=== PATIENT | female | born 1980 | race African-American/Black ===

== ENCOUNTER 2018-09-08 07:27 | Inpatient (IN) ==
[2018-09-08] MEDS ORDERED: SODIUM CHLORIDE 0.9% 500 ML IV STA (07:55)
[2018-09-08 09:11] LABS: Apearance,Urine CLOUDY (Clear); Bilirubin,Urine Negative (Negative); Blood, Urine Negative (Negative); Glucose,Urine (UA) Negative (Negative); Ketones,Urine Negative (Negative); Mucus,Urine Occasional /LPF (Occasional); Nitrite,Urine Negative (Negative); Protein,Urine 100 MG/DL; RBC,Urine <1 /HPF (0-4); Squamous Epithelial Cell,Urine Occasional /HPF (0-10); Urine Color Amber (Yellow); Urine Specific Gravity 1.013 (1.001-1.035); Urine Urobilinogen < 2.0 EU/DL (0.2-1.0); WBC,Urine 5 /HPF (0-6)
[2018-09-08 09:48] LABS: Alanine Aminotransferase 29 U/L (13-56); Albumin 0.8 G/DL (3.4-5.0); Alkaline Phosphatase 123 U/L (45-117); Aspartate Amino Transferase 17 U/L (0-37); Bilirubin,Total < 0.39 MG/DL (0.2-1.0); Blood Urea Nitrogen 66 MG/DL (7-18); Calcium 7.8 MG/DL (8.5-10.1); Glucose 157 MG/DL (74-106); Osmolality,Calculated 315.3 MOS/KG (273-304); Potassium 3.1 MMOL/L (3.5-5.1); Sodium 148 MMOL/L (136-145)
[2018-09-08 09:49] LABS: Total Protein 5.6 G/DL (6.4-8.3)
[2018-09-08 09:58] LABS: Basophils % 0.1 % (0.0-0.8); Immature Granulocytes % 0.7 %; Immature Granulocytes Absolute 0.12 #; Lymphocytes # 1.4 10*3/uL (1.4-4.0); Lymphocytes % 8.4 % (21.3-54.2); Mean Corpuscular HGB Conc 29.3 GM/DL (32-36); Mean Corpuscular Hemoglobin 23 PG (27-34); Mean Corpuscular Volume 78.7 FL (87-102); Monocytes # 0.6 10*3/uL (0.11-0.8); Monocytes % 3.3 % (1.7-12.7); Neutrophils # 15.1 10*3/uL (1.4-7.4); Neutrophils % 87.5 % (38.7-73.9); Platelet Count 551 T/CUMM (130-400); Red Blood Count 1.69 MC/CUMM (3.8-5.5); White Blood Count 17.2 T/CUMM (4-12)
[2018-09-08 10:06] LABS: Hematocrit 13.3 VOL% (35.7-47.0); Hemoglobin 3.9 GM/DL (12.0-16.0)
[2018-09-08 10:15] LABS: Hypochromasia 1+; Lymphocytes 5 % (20-55); Platelet Estimate Adequate; Segmented Neutrophils 92 % (50-85); Total Cells Counted 100
[2018-09-08 10:16] LABS: Microcytosis Slight; Ovalocytes Slight
[2018-09-08] MEDS ORDERED: SODIUM CHLORIDE 0.9% 1,000 ML IV PRN (10:18)
[2018-09-08 11:08] LABS: Sedimentation Rate-Westergren 157 MM/HR (0-20)
[2018-09-08 11:08] LABS: % Iron Saturation 16.1 % (18-50); Ferritin 465.6 ng/ml (8-252)
[2018-09-08 11:09] LABS: Thyroid Stimulating Hormone 2.39 uIU/ml (0.358-3.74)
[2018-09-08 11:17] LABS: Folate 9.5 NG/ML (5.4-24.0)
[2018-09-08] MEDS ORDERED: SODIUM CHLORIDE 0.9% 500 ML IV ONE ×2 (11:43→13:30)
[2018-09-08] MEDS: DEXT 5% NACL 0.45% KCL 20 MEQ 20 MEQ/1,000 ML BAG IV SCH (12:31)
[2018-09-08] MEDS ORDERED: SODIUM BICARBONATE 650 MG TABLET PO SCH (13:00)
[2018-09-08] MEDS: PANTOPRAZOLE 40 MG VIAL IV SCH (13:13)
[2018-09-08] MEDS: CEFTAROLINE 200 MG in SODIUM CHLORIDE 0.9% 100 ML IV SCH (13:35)
[2018-09-08 15:23] LABS: Apearance,Urine Slightly Hazy (Clear); Bilirubin,Urine Negative (Negative); Blood, Urine Negative (Negative); Glucose,Urine (UA) Negative (Negative); Ketones,Urine Negative (Negative); Nitrite,Urine Negative (Negative); Protein,Urine 30 MG/DL; RBC,Urine 1 /HPF (0-4); Urine Specific Gravity 1.013 (1.001-1.035); Urine Urobilinogen < 2.0 EU/DL (0.2-1.0); WBC,Urine 8 /HPF (0-6)
[2018-09-08 15:24] LABS: Urine Color Dark yellow (Yellow)
[2018-09-08] MEDS ORDERED: PNEUMOCOCCAL VACCINE (13 VALENT) 0.5 ML SYRINGE IM ONE (15:59)
[2018-09-08] MEDS ORDERED: ACETAMINOPHEN 650 MG SUPP RECTAL ONE (16:50)
[2018-09-08] MEDS: LACOSAMIDE 50 MG TABLET PO SCH (22:50)
[2018-09-08] MEDS: MIRTAZAPINE 15 MG TABLET PO SCH (22:50)
[2018-09-09] MEDS: DEXT 5% NACL 0.45% KCL 20 MEQ 20 MEQ/1,000 ML BAG IV SCH ×3 (00:25→14:32)
[2018-09-09] MEDS: CEFTAROLINE 200 MG in SODIUM CHLORIDE 0.9% 100 ML IV SCH ×2 (03:45→14:32)
[2018-09-09 04:44] LABS: Alanine Aminotransferase 30 U/L (13-56); Albumin 0.8 G/DL (3.4-5.0); Alkaline Phosphatase 138 U/L (45-117); Aspartate Amino Transferase 21 U/L (0-37); Basophils # 0.1 10*3/uL (0.0-0.2); Basophils % 0.4 % (0.0-0.8); Bilirubin,Total < 0.39 MG/DL (0.2-1.0); Blood Urea Nitrogen 52 MG/DL (7-18); Calcium 7.7 MG/DL (8.5-10.1); Glucose 149 MG/DL (74-106); Hematocrit 31.8 VOL% (35.7-47.0); Immature Granulocytes % 0.9 %; Lymphocytes # 0.8 10*3/uL (1.4-4.0); Lymphocytes % 3.8 % (21.3-54.2); Mean Corpuscular HGB Conc 31.4 GM/DL (32-36); Mean Corpuscular Hemoglobin 26 PG (27-34); Mean Platelet Volume 9.5 FL (9.6-12.0); Monocytes # 0.5 10*3/uL (0.11-0.8); Monocytes % 2.3 % (1.7-12.7); Neutrophils # 20.8 10*3/uL (1.4-7.4); Neutrophils % 92.6 % (38.7-73.9); Osmolality,Calculated 312.1 MOS/KG (273-304); Platelet Count 454 T/CUMM (130-400); Potassium 3.5 MMOL/L (3.5-5.1); Red Cell Distribution Width 18.3 % (9.3-17.3); Sodium 149 MMOL/L (136-145); Total Protein 5.5 G/DL (6.4-8.3)
[2018-09-09 04:53] LABS: Red Blood Count 3.83 MC/CUMM (3.8-5.5); White Blood Count 22.4 T/CUMM (4-12)
[2018-09-09 05:07] LABS: Band Neutrophils 6 % (0-10); Lymphocytes 5 % (20-55); Segmented Neutrophils 87 % (50-85); Total Cells Counted 100
[2018-09-09 05:08] LABS: Platelet Estimate Increased; Polychromasia 1+
[2018-09-09] MEDS ORDERED: GLUCAGON 1 MG VIAL IM PRN (07:55)
[2018-09-09] MEDS ORDERED: ACETAMINOPHEN 325 MG TABLET PO PRN (07:55)
[2018-09-09] MEDS: PANTOPRAZOLE 40 MG VIAL IV SCH (08:47)
[2018-09-09] MEDS: POTASSIUM CHLORIDE RIDER 10 MEQ in PREMIX 1 EACH IV PRN ×3 (08:47→11:18)
[2018-09-09] MEDS: MULTIVITAMIN (CENTRUM) TABLET PO SCH (11:46)
[2018-09-09] MEDS: LACOSAMIDE 50 MG TABLET PO SCH ×2 (11:46→20:09)
[2018-09-09] MEDS: ATORVASTATIN 40 MG TABLET PO SCH (11:46)
[2018-09-09] MEDS: ZINC OXIDE PASTE 113 GM TUBE TOP SCH ×2 (14:32→20:09)
[2018-09-09] MEDS: MIRTAZAPINE 15 MG TABLET PO SCH (20:09)
[2018-09-10] MEDS: CEFTAROLINE 200 MG in SODIUM CHLORIDE 0.9% 100 ML IV SCH ×2 (01:41→14:38)
[2018-09-10] MEDS: DEXT 5% NACL 0.45% KCL 20 MEQ 20 MEQ/1,000 ML BAG IV SCH ×3 (01:42→15:35)
[2018-09-10 03:50] LABS: Basophils # 0.1 10*3/uL (0.0-0.2); Basophils % 0.3 % (0.0-0.8); Hematocrit 33.3 VOL% (35.7-47.0); Hemoglobin 10.6 GM/DL (12.0-16.0); Immature Granulocytes % 0.8 %; Immature Granulocytes Absolute 0.17 #; Lymphocytes # 1.2 10*3/uL (1.4-4.0); Lymphocytes % 5.4 % (21.3-54.2); Mean Corpuscular HGB Conc 31.8 GM/DL (32-36); Mean Corpuscular Hemoglobin 26 PG (27-34); Mean Platelet Volume 9.4 FL (9.6-12.0); Monocytes # 0.7 10*3/uL (0.11-0.8); Monocytes % 3.1 % (1.7-12.7); Neutrophils # 19.3 10*3/uL (1.4-7.4); Neutrophils % 90.4 % (38.7-73.9); Platelet Count 446 T/CUMM (130-400); Red Blood Count 4.01 MC/CUMM (3.8-5.5); Red Cell Distribution Width 18.6 % (9.3-17.3); White Blood Count 21.3 T/CUMM (4-12)
[2018-09-10 03:58] LABS: Calcium 7.8 MG/DL (8.5-10.1); Osmolality,Calculated 301.3 MOS/KG (273-304); Potassium 3.9 MMOL/L (3.5-5.1)
[2018-09-10 04:27] LABS: Band Neutrophils 3 % (0-10); Burr Cells Slight; Hypochromasia 1+; Lymphocytes 6 % (20-55); Ovalocytes Slight; Platelet Estimate Adequate; Segmented Neutrophils 89 % (50-85); Total Cells Counted 100
[2018-09-10] MEDS ORDERED: GLUCAGON 1 MG VIAL IM PRN (04:29)
[2018-09-10] MEDS: DEXTROSE 50% 25 GM/50 ML SYRINGE IV PRN (04:44)
[2018-09-10] MEDS ORDERED: MAGNESIUM SULF RIDER 4 GM in PREMIX 1 EACH IV ONE (06:45)
[2018-09-10] MEDS: ZINC OXIDE PASTE 113 GM TUBE TOP SCH ×2 (07:00→21:18)
[2018-09-10] MEDS: POTASSIUM CHLORIDE RIDER 10 MEQ in PREMIX 1 EACH IV PRN ×2 (07:51→08:38)
[2018-09-10] MEDS: PANTOPRAZOLE 40 MG VIAL IV SCH (08:04)
[2018-09-10] MEDS: MULTIVITAMIN (CENTRUM) TABLET PO SCH ×2 (08:37→14:39)
[2018-09-10] MEDS: LACOSAMIDE 50 MG TABLET PO SCH ×3 (08:37→21:19)
[2018-09-10] MEDS: ATORVASTATIN 40 MG TABLET PO SCH ×2 (08:37→14:38)
[2018-09-10] MEDS ORDERED: LIDOCAINE 1%/EPI INJ 20 ML VIAL ONE (10:47)
[2018-09-10] MEDS ORDERED: MICROFIBRILLAR COLLAGEN POWDER 1 GM CAN TOP ONE (11:55)
[2018-09-10] MEDS ORDERED: MIDAZOLAM 2 MG/2 ML VIAL ONE (12:24)
[2018-09-10] MEDS ORDERED: PROPOFOL 200 MG/20 ML VIAL IV ONE (12:24)
[2018-09-10] MEDS ORDERED: fentaNYL 100 MCG/2 ML VIAL ONE (12:24)
[2018-09-10] MEDS: MIRTAZAPINE 15 MG TABLET PO SCH (21:19)
[2018-09-11] MEDS: DEXT 5% NACL 0.45% KCL 20 MEQ 20 MEQ/1,000 ML BAG IV SCH (02:53)
[2018-09-11] MEDS: CEFTAROLINE 200 MG in SODIUM CHLORIDE 0.9% 100 ML IV SCH (02:55)
[2018-09-11 05:36] LABS: Basophils # 0.1 10*3/uL (0.0-0.2); Basophils % 0.2 % (0.0-0.8); Hematocrit 32.2 VOL% (35.7-47.0); Immature Granulocytes Absolute 0.21 #; Lymphocytes # 1.4 10*3/uL (1.4-4.0); Lymphocytes % 6.7 % (21.3-54.2); Mean Corpuscular HGB Conc 31.1 GM/DL (32-36); Mean Corpuscular Hemoglobin 26 PG (27-34); Mean Corpuscular Volume 83.6 FL (87-102); Mean Platelet Volume 9.4 FL (9.6-12.0); Monocytes # 0.6 10*3/uL (0.11-0.8); Neutrophils # 19.1 10*3/uL (1.4-7.4); Neutrophils % 89.1 % (38.7-73.9); Platelet Count 360 T/CUMM (130-400); Red Blood Count 3.85 MC/CUMM (3.8-5.5); Red Cell Distribution Width 18.8 % (9.3-17.3); White Blood Count 21.5 T/CUMM (4-12)
[2018-09-11 06:01] LABS: Hypochromasia 1+; Lymphocytes 3 % (20-55); Ovalocytes Slight; Platelet Estimate Adequate; Segmented Neutrophils 94 % (50-85); Total Cells Counted 100
[2018-09-11 06:02] LABS: Burr Cells Slight
[2018-09-11 06:06] LABS: Osmolality,Calculated 292.7 MOS/KG (273-304)
[2018-09-11] MEDS: cefTRIAXone 1,000 MG in SYRINGE 1 EACH IV SCH (06:47)
[2018-09-11] MEDS: PANTOPRAZOLE 40 MG VIAL IV SCH (09:50)
[2018-09-11] MEDS: LACOSAMIDE 50 MG TABLET PO SCH ×2 (09:51→21:45)
[2018-09-11] MEDS: ATORVASTATIN 40 MG TABLET PO SCH (09:51)
[2018-09-11] MEDS: MULTIVITAMIN (CENTRUM) TABLET PO SCH (09:51)
[2018-09-11] MEDS: ZINC OXIDE PASTE 113 GM TUBE TOP SCH ×2 (09:51→21:45)
[2018-09-11] MEDS: SODIUM BICARB INJ 100 MEQ in STERILE WATER INJ 1,000 ML IV SCH ×3 (09:51→21:58)
[2018-09-11] MEDS: SODIUM HYPOCHLORITE 0.25% IRRIG 473 ML BOTTLE TOP SCH ×2 (11:04→21:41)
[2018-09-11] MEDS: MIRTAZAPINE 15 MG TABLET PO SCH (21:45)
[2018-09-12] MEDS: DEXTROSE 50% 25 GM/50 ML SYRINGE IV PRN (03:45)
[2018-09-12 04:51] LABS: Basophils # 0.1 10*3/uL (0.0-0.2); Basophils % 0.3 % (0.0-0.8); Hematocrit 29.3 VOL% (35.7-47.0); Hemoglobin 9.1 GM/DL (12.0-16.0); Immature Granulocytes % 0.9 %; Immature Granulocytes Absolute 0.15 #; Lymphocytes # 1.6 10*3/uL (1.4-4.0); Mean Corpuscular HGB Conc 31.1 GM/DL (32-36); Mean Corpuscular Hemoglobin 26 PG (27-34); Mean Corpuscular Volume 82.8 FL (87-102); Mean Platelet Volume 9.8 FL (9.6-12.0); Monocytes # 0.5 10*3/uL (0.11-0.8); Monocytes % 3.1 % (1.7-12.7); Neutrophils % 86.7 % (38.7-73.9); Platelet Count 309 T/CUMM (130-400); Red Blood Count 3.54 MC/CUMM (3.8-5.5); Red Cell Distribution Width 18.6 % (9.3-17.3); White Blood Count 17.2 T/CUMM (4-12)
[2018-09-12 05:07] LABS: Calcium 7.5 MG/DL (8.5-10.1); Osmolality,Calculated 294.1 MOS/KG (273-304); Potassium 5.1 MMOL/L (3.5-5.1)
[2018-09-12 05:27] LABS: Lymphocytes 7 % (20-55); Total Cells Counted 100
[2018-09-12 05:28] LABS: Platelet Estimate Normal; Segmented Neutrophils 90 % (50-85)
[2018-09-12 05:29] LABS: Helmet Cells Few; Hypochromasia Slight
[2018-09-12] MEDS: cefTRIAXone 1,000 MG in SYRINGE 1 EACH IV SCH (06:08)
[2018-09-12] MEDS: SODIUM BICARB INJ 100 MEQ in STERILE WATER INJ 1,000 ML IV SCH ×2 (07:13→09:04)
[2018-09-12] MEDS: ZINC OXIDE PASTE 113 GM TUBE TOP SCH ×2 (08:58→21:43)
[2018-09-12] MEDS: PANTOPRAZOLE 40 MG VIAL IV SCH (08:58)
[2018-09-12] MEDS: MULTIVITAMIN (CENTRUM) TABLET PO SCH (08:58)
[2018-09-12] MEDS: ATORVASTATIN 40 MG TABLET PO SCH (08:58)
[2018-09-12] MEDS: LACOSAMIDE 50 MG TABLET PO SCH ×2 (08:58→21:43)
[2018-09-12] MEDS: SODIUM HYPOCHLORITE 0.25% IRRIG 473 ML BOTTLE TOP SCH ×2 (08:58→21:43)
[2018-09-12] MEDS: DEXTROSE 5% NACL 0.45% 1,000 ML IV SCH (16:15)
[2018-09-12] MEDS: MIRTAZAPINE 15 MG TABLET PO SCH (21:44)
[2018-09-13 06:00] LABS: Basophils # 0.1 10*3/uL (0.0-0.2); Basophils % 0.4 % (0.0-0.8); Hematocrit 30.5 VOL% (35.7-47.0); Hemoglobin 9.5 GM/DL (12.0-16.0); INR 1.1; Immature Granulocytes % 0.8 %; Immature Granulocytes Absolute 0.22 #; Lymphocytes # 1.5 10*3/uL (1.4-4.0); Lymphocytes % 5.1 % (21.3-54.2); Mean Corpuscular HGB Conc 31.1 GM/DL (32-36); Mean Corpuscular Hemoglobin 26 PG (27-34); Mean Corpuscular Volume 82.9 FL (87-102); Mean Platelet Volume 9.6 FL (9.6-12.0); Monocytes # 0.4 10*3/uL (0.11-0.8); Monocytes % 1.5 % (1.7-12.7); Neutrophils # 26.7 10*3/uL (1.4-7.4); Neutrophils % 92.2 % (38.7-73.9); PT Patient Result 12.3 SECS; Platelet Count 283 T/CUMM (130-400); Red Blood Count 3.68 MC/CUMM (3.8-5.5); Red Cell Distribution Width 18.7 % (9.3-17.3); White Blood Count 28.9 T/CUMM (4-12)
[2018-09-13] MEDS: cefTRIAXone 1,000 MG in SYRINGE 1 EACH IV SCH (06:05)
[2018-09-13 06:25] LABS: Band Neutrophils 2 % (0-10); Hypochromasia 1+; Lymphocytes 4 % (20-55); Segmented Neutrophils 91 % (50-85); Total Cells Counted 100
[2018-09-13 06:26] LABS: Acanthocytes Few; Microcytosis 1+; Platelet Estimate Normal
[2018-09-13] MEDS: SODIUM HYPOCHLORITE 0.25% IRRIG 473 ML BOTTLE TOP SCH ×2 (08:04→21:32)
[2018-09-13] MEDS: ZINC OXIDE PASTE 113 GM TUBE TOP SCH ×2 (08:04→21:32)
[2018-09-13] MEDS: MULTIVITAMIN (CENTRUM) TABLET PO SCH (08:04)
[2018-09-13] MEDS: ATORVASTATIN 40 MG TABLET PO SCH (08:05)
[2018-09-13] MEDS: PANTOPRAZOLE 40 MG VIAL IV SCH (08:05)
[2018-09-13] MEDS ORDERED: PROPOFOL 200 MG/20 ML VIAL IV ONE (10:00)
[2018-09-13] MEDS ORDERED: LIDOCAINE 2% 5 ML VIAL ONE (10:00)
[2018-09-13] MEDS: LACOSAMIDE 50 MG TABLET PO SCH ×2 (11:03→21:30)
[2018-09-13] MEDS: DEXTROSE 5% NACL 0.45% 1,000 ML IV SCH (11:03)
[2018-09-13] MEDS: PIPERACILLIN/TAZOBACTAM 3,375 MG in SODIUM CHLORIDE 0.9% 100 ML IV SCH ×2 (12:15→21:30)
[2018-09-13] MEDS: METOCLOPRAMIDE 10 MG/2 ML VIAL IV SCH ×2 (12:16→23:30)
[2018-09-13] MEDS: VANCOMYCIN INJ 500 MG in SODIUM CHLORIDE 0.9% 100 ML IV SCH (16:55)
[2018-09-13] MEDS: ALBUTEROL/IPRATROPIUM 3 ML NEB RESP TX SCH (19:43)
[2018-09-13] MEDS: MIRTAZAPINE 15 MG TABLET PO SCH (21:30)
[2018-09-14] MEDS: ALBUTEROL/IPRATROPIUM 3 ML NEB RESP TX SCH ×4 (00:46→19:22)
[2018-09-14] MEDS: PIPERACILLIN/TAZOBACTAM 3,375 MG in SODIUM CHLORIDE 0.9% 100 ML IV SCH ×3 (05:05→22:50)
[2018-09-14 06:04] LABS: Basophils # 0.1 10*3/uL (0.0-0.2); Basophils % 0.3 % (0.0-0.8); Hematocrit 31.5 VOL% (35.7-47.0); Hemoglobin 9.5 GM/DL (12.0-16.0); Immature Granulocytes % 1.3 %; Lymphocytes # 1.4 10*3/uL (1.4-4.0); Lymphocytes % 4.4 % (21.3-54.2); Mean Corpuscular HGB Conc 30.2 GM/DL (32-36); Mean Corpuscular Hemoglobin 26 PG (27-34); Mean Corpuscular Volume 86.1 FL (87-102); Mean Platelet Volume 10.4 FL (9.6-12.0); Monocytes # 0.7 10*3/uL (0.11-0.8); Monocytes % 2.4 % (1.7-12.7); Neutrophils # 28.8 10*3/uL (1.4-7.4); Neutrophils % 91.6 % (38.7-73.9); Platelet Count 166 T/CUMM (130-400); Red Blood Count 3.66 MC/CUMM (3.8-5.5); Red Cell Distribution Width 19.1 % (9.3-17.3); White Blood Count 31.5 T/CUMM (4-12)
[2018-09-14 06:27] LABS: Calcium 7.9 MG/DL (8.5-10.1); Potassium 4.8 MMOL/L (3.5-5.1)
[2018-09-14 06:57] LABS: Band Neutrophils 21 % (0-10); Eosinophils 1 % (0-10); Lymphocytes 5 % (20-55); Platelet Estimate Normal; Segmented Neutrophils 70 % (50-85); Total Cells Counted 100
[2018-09-14 06:58] LABS: Anisocytosis Slight; Poikilocytosis 1+
[2018-09-14] MEDS ORDERED: MAGNESIUM SULF RIDER 2 GM in PREMIX 1 EACH IV ONE (07:03)
[2018-09-14] MEDS: ALBUTEROL 2.5 MG/3 ML NEB RESP TX PRN (07:48)
[2018-09-14] MEDS: DEXTROSE 50% 25 GM/50 ML SYRINGE IV PRN (08:44)
[2018-09-14] MEDS ORDERED: BISACODYL 10 MG SUPP RECTAL ONE ×2 (10:47→17:00)
[2018-09-14] MEDS: MULTIVITAMIN (CENTRUM) TABLET PO SCH (10:47)
[2018-09-14] MEDS: LACOSAMIDE 50 MG TABLET PO SCH ×2 (10:47→21:53)
[2018-09-14] MEDS: PANTOPRAZOLE 40 MG VIAL IV SCH (10:47)
[2018-09-14] MEDS: ATORVASTATIN 40 MG TABLET PO SCH (10:47)
[2018-09-14] MEDS: ZINC OXIDE PASTE 113 GM TUBE TOP SCH ×2 (10:47→21:53)
[2018-09-14] MEDS: SODIUM HYPOCHLORITE 0.25% IRRIG 473 ML BOTTLE TOP SCH ×2 (10:48→21:50)
[2018-09-14] MEDS: DEXTROSE 5% NACL 0.45% 1,000 ML IV SCH (11:59)
[2018-09-14] MEDS: SODIUM BICARB INJ 100 MEQ in DEXTROSE 5% 1,000 ML IV SCH (12:09)
[2018-09-14] MEDS: METOCLOPRAMIDE 10 MG/2 ML VIAL IV SCH (16:35)
[2018-09-14] MEDS: MIRTAZAPINE 15 MG TABLET PO SCH (21:53)
[2018-09-15] MEDS: METOCLOPRAMIDE 10 MG/2 ML VIAL IV SCH ×2 (00:55→15:17)
[2018-09-15] MEDS: ALBUTEROL/IPRATROPIUM 3 ML NEB RESP TX SCH ×4 (01:13→20:18)
[2018-09-15] MEDS: SODIUM BICARB INJ 100 MEQ in DEXTROSE 5% 1,000 ML IV SCH ×3 (04:44→20:02)
[2018-09-15 05:47] LABS: Basophils # 0.1 10*3/uL (0.0-0.2); Basophils % 0.3 % (0.0-0.8); Hematocrit 30.5 VOL% (35.7-47.0); Hemoglobin 9.6 GM/DL (12.0-16.0); Immature Granulocytes Absolute 0.27 #; Lymphocytes # 1.6 10*3/uL (1.4-4.0); Mean Corpuscular HGB Conc 31.5 GM/DL (32-36); Mean Corpuscular Hemoglobin 26 PG (27-34); Mean Corpuscular Volume 82.4 FL (87-102); Mean Platelet Volume 10.2 FL (9.6-12.0); Monocytes # 0.6 10*3/uL (0.11-0.8); Monocytes % 2.5 % (1.7-12.7); Neutrophils # 23.3 10*3/uL (1.4-7.4); Neutrophils % 90.2 % (38.7-73.9); Platelet Count 220 T/CUMM (130-400); White Blood Count 25.8 T/CUMM (4-12)
[2018-09-15 05:57] LABS: Calcium 7.9 MG/DL (8.5-10.1); Osmolality,Calculated 285.8 MOS/KG (273-304)
[2018-09-15] MEDS ORDERED: MAGNESIUM SULF RIDER 2 GM in PREMIX 1 EACH IV ONE ×2 (06:44→15:30)
[2018-09-15] MEDS: PIPERACILLIN/TAZOBACTAM 3,375 MG in SODIUM CHLORIDE 0.9% 100 ML IV SCH ×4 (06:53→20:36)
[2018-09-15 06:56] LABS: Anisocytosis 1+; Band Neutrophils 12 % (0-10); Lymphocytes 3 % (20-55); Platelet Estimate Normal; Poikilocytosis 2+; Segmented Neutrophils 83 % (50-85); Smudge Cells Few; Total Cells Counted 100
[2018-09-15] MEDS: MULTIVITAMIN (CENTRUM) TABLET PO SCH (10:01)
[2018-09-15] MEDS: LACOSAMIDE 50 MG TABLET PO SCH ×2 (10:01→20:31)
[2018-09-15] MEDS: PANTOPRAZOLE 40 MG VIAL IV SCH (10:01)
[2018-09-15] MEDS: ATORVASTATIN 40 MG TABLET PO SCH (10:01)
[2018-09-15] MEDS: ZINC OXIDE PASTE 113 GM TUBE TOP SCH ×2 (10:02→20:37)
[2018-09-15] MEDS: SODIUM HYPOCHLORITE 0.25% IRRIG 473 ML BOTTLE TOP SCH ×2 (10:02→20:15)
[2018-09-15] MEDS: VANCOMYCIN INJ 500 MG in SODIUM CHLORIDE 0.9% 100 ML IV SCH (12:39)
[2018-09-15] MEDS: MIRTAZAPINE 15 MG TABLET PO SCH (20:31)
[2018-09-15] MEDS: DEXTROSE 50% 25 GM/50 ML SYRINGE IV PRN (20:32)
[2018-09-16] MEDS: METOCLOPRAMIDE 10 MG/2 ML VIAL IV SCH (00:54)
[2018-09-16] MEDS: ALBUTEROL/IPRATROPIUM 3 ML NEB RESP TX SCH ×4 (01:29→19:03)
[2018-09-16] MEDS: PIPERACILLIN/TAZOBACTAM 3,375 MG in SODIUM CHLORIDE 0.9% 100 ML IV SCH ×3 (04:46→22:02)
[2018-09-16] MEDS: DEXTROSE 50% 25 GM/50 ML SYRINGE IV PRN ×2 (07:34→11:24)
[2018-09-16 07:37] LABS: Basophils # 0.1 10*3/uL (0.0-0.2); Basophils % 0.3 % (0.0-0.8); Hematocrit 27.8 VOL% (35.7-47.0); Hemoglobin 8.8 GM/DL (12.0-16.0); Immature Granulocytes % 0.5 %; Immature Granulocytes Absolute 0.12 #; Lymphocytes # 1.3 10*3/uL (1.4-4.0); Mean Corpuscular HGB Conc 31.7 GM/DL (32-36); Mean Corpuscular Hemoglobin 26 PG (27-34); Mean Corpuscular Volume 81.5 FL (87-102); Mean Platelet Volume 10.4 FL (9.6-12.0); Monocytes # 0.6 10*3/uL (0.11-0.8); Monocytes % 2.9 % (1.7-12.7); Neutrophils # 19.9 10*3/uL (1.4-7.4); Neutrophils % 90.3 % (38.7-73.9); Platelet Count 172 T/CUMM (130-400); Red Blood Count 3.41 MC/CUMM (3.8-5.5); Red Cell Distribution Width 18.5 % (9.3-17.3)
[2018-09-16 07:55] LABS: Calcium 7.6 MG/DL (8.5-10.1); Osmolality,Calculated 286.7 MOS/KG (273-304); Potassium 3.4 MMOL/L (3.5-5.1)
[2018-09-16 08:03] LABS: Band Neutrophils 1 % (0-10); Hypochromasia 1+; Lymphocytes 8 % (20-55); Ovalocytes Slight; Platelet Estimate Adequate; Segmented Neutrophils 88 % (50-85); Total Cells Counted 100
[2018-09-16] MEDS: MULTIVITAMIN (CENTRUM) TABLET PO SCH (08:45)
[2018-09-16] MEDS: PANTOPRAZOLE 40 MG VIAL IV SCH (08:45)
[2018-09-16] MEDS: ATORVASTATIN 40 MG TABLET PO SCH (08:45)
[2018-09-16] MEDS: LACOSAMIDE 50 MG TABLET PO SCH ×2 (08:45→22:04)
[2018-09-16] MEDS: SODIUM BICARB INJ 100 MEQ in DEXTROSE 5% 1,000 ML IV SCH ×2 (08:46→12:08)
[2018-09-16] MEDS ORDERED: PROPOFOL 200 MG/20 ML VIAL IV ONE (10:00)
[2018-09-16] MEDS ORDERED: LIDOCAINE 100 MG/5 ML SYRINGE ONE (10:00)
[2018-09-16] MEDS: MORPHINE 4 MG/1 ML VIAL IV PRN (11:26)
[2018-09-16] MEDS: ZINC OXIDE PASTE 113 GM TUBE TOP SCH ×2 (11:30→22:05)
[2018-09-16] MEDS: SODIUM HYPOCHLORITE 0.25% IRRIG 473 ML BOTTLE TOP SCH ×2 (11:30→22:04)
[2018-09-16] MEDS: VANCOMYCIN INJ 750 MG in SODIUM CHLORIDE 0.9% 250 ML IV SCH (16:05)
[2018-09-16] MEDS: MIRTAZAPINE 15 MG TABLET PO SCH (22:04)
[2018-09-17] MEDS: ALBUTEROL/IPRATROPIUM 3 ML NEB RESP TX SCH ×4 (00:21→19:14)
[2018-09-17] MEDS: SODIUM BICARB INJ 100 MEQ in DEXTROSE 5% 1,000 ML IV SCH ×2 (02:00→17:41)
[2018-09-17] MEDS: PIPERACILLIN/TAZOBACTAM 3,375 MG in SODIUM CHLORIDE 0.9% 100 ML IV SCH ×3 (05:21→21:21)
[2018-09-17 06:00] LABS: Basophils # 0.1 10*3/uL (0.0-0.2); Basophils % 0.3 % (0.0-0.8); Hematocrit 29.5 VOL% (35.7-47.0); Hemoglobin 9.2 GM/DL (12.0-16.0); Immature Granulocytes % 0.5 %; Immature Granulocytes Absolute 0.13 #; Lymphocytes # 0.9 10*3/uL (1.4-4.0); Lymphocytes % 3.9 % (21.3-54.2); Mean Corpuscular HGB Conc 31.2 GM/DL (32-36); Mean Corpuscular Hemoglobin 26 PG (27-34); Mean Corpuscular Volume 81.9 FL (87-102); Mean Platelet Volume 10.5 FL (9.6-12.0); Monocytes # 0.7 10*3/uL (0.11-0.8); Monocytes % 2.8 % (1.7-12.7); Neutrophils # 22.1 10*3/uL (1.4-7.4); Neutrophils % 92.5 % (38.7-73.9); Platelet Count 158 T/CUMM (130-400); Red Cell Distribution Width 18.7 % (9.3-17.3); White Blood Count 23.9 T/CUMM (4-12)
[2018-09-17 06:34] LABS: Acanthocytes Few; Band Neutrophils 2 % (0-10); Hypochromasia 1+; Lymphocytes 3 % (20-55); Microcytosis 1+; Segmented Neutrophils 92 % (50-85); Total Cells Counted 100
[2018-09-17 06:35] LABS: Ovalocytes Slight
[2018-09-17 06:36] LABS: Platelet Estimate Adequate
[2018-09-17 06:37] LABS: Calcium 7.3 MG/DL (8.5-10.1); Potassium 3.6 MMOL/L (3.5-5.1)
[2018-09-17] MEDS: MULTIVITAMIN LIQUID (CENTRUM) 60 ML BOTTLE PO SCH (11:01)
[2018-09-17] MEDS: LACOSAMIDE 50 MG TABLET PO SCH ×2 (11:01→21:25)
[2018-09-17] MEDS: ATORVASTATIN 40 MG TABLET PO SCH (11:01)
[2018-09-17] MEDS: ZINC OXIDE PASTE 113 GM TUBE TOP SCH ×2 (11:01→21:25)
[2018-09-17] MEDS: SODIUM HYPOCHLORITE 0.25% IRRIG 473 ML BOTTLE TOP SCH ×2 (11:01→21:25)
[2018-09-17] MEDS: PANTOPRAZOLE 40 MG VIAL IV SCH (11:02)
[2018-09-17] MEDS: MULTIVITAMIN (CENTRUM) TABLET PO SCH (14:55)
[2018-09-17] MEDS: VANCOMYCIN INJ 750 MG in SODIUM CHLORIDE 0.9% 250 ML IV SCH (17:40)
[2018-09-17] MEDS: MORPHINE 4 MG/1 ML VIAL IV PRN (18:34)
[2018-09-17] MEDS: MIRTAZAPINE 15 MG TABLET PO SCH (21:25)
[2018-09-18] MEDS: ALBUTEROL/IPRATROPIUM 3 ML NEB RESP TX SCH ×4 (01:10→19:34)
[2018-09-18] MEDS: SODIUM BICARB INJ 100 MEQ in DEXTROSE 5% 1,000 ML IV SCH (01:28)
[2018-09-18] MEDS: PIPERACILLIN/TAZOBACTAM 3,375 MG in SODIUM CHLORIDE 0.9% 100 ML IV SCH ×3 (05:11→21:36)
[2018-09-18 06:38] LABS: Basophils # 0.1 10*3/uL (0.0-0.2); Basophils % 0.4 % (0.0-0.8); Hematocrit 29.6 VOL% (35.7-47.0); Hemoglobin 9.3 GM/DL (12.0-16.0); Immature Granulocytes % 0.8 %; Lymphocytes # 1.2 10*3/uL (1.4-4.0); Lymphocytes % 4.9 % (21.3-54.2); Mean Corpuscular HGB Conc 31.4 GM/DL (32-36); Mean Corpuscular Hemoglobin 27 PG (27-34); Mean Corpuscular Volume 84.3 FL (87-102); Mean Platelet Volume 11.3 FL (9.6-12.0); Monocytes # 0.8 10*3/uL (0.11-0.8); Monocytes % 3.1 % (1.7-12.7); Neutrophils # 22.2 10*3/uL (1.4-7.4); Neutrophils % 90.8 % (38.7-73.9); Platelet Count 145 T/CUMM (130-400); Red Blood Count 3.51 MC/CUMM (3.8-5.5); Red Cell Distribution Width 18.8 % (9.3-17.3); White Blood Count 24.5 T/CUMM (4-12)
[2018-09-18 06:58] LABS: Burr Cells Slight; Hypochromasia 1+; Lymphocytes 3 % (20-55); Microcytosis 1+; Ovalocytes Slight; Platelet Estimate Adequate; Segmented Neutrophils 94 % (50-85); Total Cells Counted 100
[2018-09-18 07:06] LABS: Calcium 7.6 MG/DL (8.5-10.1); Osmolality,Calculated 285.1 MOS/KG (273-304); Potassium 3.7 MMOL/L (3.5-5.1)
[2018-09-18 07:08] LABS: Calcium 7.3 MG/DL (8.5-10.1); Osmolality,Calculated 283.3 MOS/KG (273-304); Potassium 3.7 MMOL/L (3.5-5.1)
[2018-09-18] MEDS: ALBUTEROL 2.5 MG/3 ML NEB RESP TX PRN (08:20)
[2018-09-18] MEDS ORDERED: FUROSEMIDE 40 MG/4 ML VIAL IV ONE (08:22)
[2018-09-18 09:11] LABS: ABG Base Excess 5.1 MMOL/L (-2.5-2.5); ABG HCO3 28.8 MMOL/L (20-26); ABG Oxygen Saturation 86.7 % (95-100); ABG PH 7.344 (7.35-7.45); ABG PO2 59.2 MM HG (80-95); ABG TCO2 29.7 MMOL/L (23-27); Allen Test Positive
[2018-09-18] MEDS: DORNASE ALFA 2.5 MG/2.5 ML VIAL RESP TX SCH ×2 (09:19→19:34)
[2018-09-18] MEDS: CLINDAMYCIN INJ 600 MG in PREMIX 1 EACH IV SCH ×2 (09:50→18:23)
[2018-09-18] MEDS: methylPREDNISolone SOD SUC 40 MG/1 ML VIAL IV SCH ×2 (09:50→18:22)
[2018-09-18] MEDS: PANTOPRAZOLE 40 MG VIAL IV SCH (09:50)
[2018-09-18] MEDS: ASPIRIN EC 81 MG TABLET PO SCH (09:51)
[2018-09-18] MEDS: ATORVASTATIN 40 MG TABLET PO SCH (09:51)
[2018-09-18] MEDS: CLOPIDOGREL 75 MG TABLET PO SCH (09:51)
[2018-09-18] MEDS: SODIUM HYPOCHLORITE 0.25% IRRIG 473 ML BOTTLE TOP SCH ×2 (09:52→21:36)
[2018-09-18] MEDS: ZINC OXIDE PASTE 113 GM TUBE TOP SCH ×2 (09:52→21:36)
[2018-09-18] MEDS: MULTIVITAMIN LIQUID (CENTRUM) 60 ML BOTTLE PO SCH (10:10)
[2018-09-18] MEDS: MULTIVITAMIN (CENTRUM) TABLET PO SCH (10:25)
[2018-09-18] MEDS: LACOSAMIDE 50 MG TABLET PO SCH ×2 (12:13→21:36)
[2018-09-18] MEDS: MORPHINE 4 MG/1 ML VIAL IV PRN ×2 (12:35→22:45)
[2018-09-18] MEDS: DEXTROSE 5% NACL 0.45% 1,000 ML IV SCH (12:45)
[2018-09-18 12:55] LABS: ABG Base Excess 5.3 MMOL/L (-2.5-2.5); ABG Oxygen Saturation 86.9 % (95-100); ABG PCO2 52.4 MM HG (35-48); ABG PH 7.385 (7.35-7.45); ABG PO2 55.4 MM HG (80-95); ABG TCO2 28.9 MMOL/L (23-27)
[2018-09-18] MEDS ORDERED: MORPHINE 4 MG/1 ML VIAL IV ONE (13:24)
[2018-09-18 18:24] LABS: ABG Base Excess 4.8 MMOL/L (-2.5-2.5); ABG HCO3 28.6 MMOL/L (20-26); ABG Oxygen Saturation 88.6 % (95-100); ABG PCO2 52.8 MM HG (35-48); ABG PH 7.378 (7.35-7.45); ABG PO2 58.6 MM HG (80-95); ABG TCO2 28.4 MMOL/L (23-27)
[2018-09-18] MEDS: MIRTAZAPINE 15 MG TABLET PO SCH (21:36)
[2018-09-18] MEDS: CLINDAMYCIN 15 MG/ML 100 ML/BOTTLE PO SCH (21:36)
[2018-09-19] MEDS: ALBUTEROL/IPRATROPIUM 3 ML NEB RESP TX SCH ×4 (00:09→18:17)
[2018-09-19] MEDS ORDERED: ETOMIDATE 20 MG/10 ML VIAL IV ONE (01:01)
[2018-09-19] MEDS ORDERED: SUCCINYLCHOLINE 200 MG/10 ML VIAL ONE (01:01)
[2018-09-19] MEDS ORDERED: EPINEPHrine 1 MG/10 ML SYRINGE IV ONE (01:25)
[2018-09-19] MEDS ORDERED: SODIUM BICARBONATE 50 MEQ/50 ML SYRINGE IV ONE ×2 (01:26→01:55)
[2018-09-19 01:42] LABS: ABG Base Excess 3.5 MMOL/L (-2.5-2.5); ABG HCO3 32.5 MMOL/L (20-26); ABG Oxygen Saturation 90.3 % (95-100); ABG PH 7.221 (7.35-7.45); ABG PO2 73.3 MM HG (80-95); Allen Test Positive; Pt O2 Delivery Device Ventilator
[2018-09-19] MEDS: PROPOFOL 1,000 MG/100 ML BOTTLE IV SCH ×2 (01:45→19:50)
[2018-09-19 01:49] LABS: ABG PCO2 81.1 MM HG (35-48)
[2018-09-19] MEDS ORDERED: AMIODARONE INJ 150 MG in DEXTROSE 5% 100 ML IV ONE (01:53)
[2018-09-19] MEDS ORDERED: metroNIDAZOLE INJ 500 MG in PREMIX 1 EACH IV ONE (01:53)
[2018-09-19] MEDS ORDERED: FUROSEMIDE 20 MG/2 ML VIAL IV ONE (01:53)
[2018-09-19] MEDS ORDERED: VANCOMYCIN INJ 600 MG in SODIUM CHLORIDE 0.9% 100 ML IV ONE (01:53)
[2018-09-19] MEDS ORDERED: ATROPINE 1 MG/10 ML SYRINGE IV ONE (01:55)
[2018-09-19] MEDS ORDERED: AMIODARONE INJ 450 MG in DEXTROSE 5% 241 ML IV SCH (02:00)
[2018-09-19] MEDS ORDERED: FUROSEMIDE 20 MG/2 ML VIAL ONE (02:02)
[2018-09-19 02:06] LABS: Basophils # 0.1 10*3/uL (0.0-0.2); Basophils % 0.4 % (0.0-0.8); Hematocrit 27.9 VOL% (35.7-47.0); Hemoglobin 8.4 GM/DL (12.0-16.0); Immature Granulocytes % 1.6 %; Immature Granulocytes Absolute 0.49 #; Lymphocytes # 2.2 10*3/uL (1.4-4.0); Lymphocytes % 7.2 % (21.3-54.2); Mean Corpuscular HGB Conc 30.1 GM/DL (32-36); Mean Corpuscular Hemoglobin 26 PG (27-34); Mean Corpuscular Volume 86.4 FL (87-102); Mean Platelet Volume 12.1 FL (9.6-12.0); Monocytes # 0.5 10*3/uL (0.11-0.8); Monocytes % 1.6 % (1.7-12.7); Neutrophils # 27.4 10*3/uL (1.4-7.4); Neutrophils % 89.2 % (38.7-73.9); Platelet Count 135 T/CUMM (130-400); Red Blood Count 3.23 MC/CUMM (3.8-5.5); Red Cell Distribution Width 18.8 % (9.3-17.3); White Blood Count 30.7 T/CUMM (4-12)
[2018-09-19] MEDS ORDERED: PROPOFOL 1,000 MG/100 ML BOTTLE IV ONE (02:13)
[2018-09-19 02:17] LABS: Alanine Aminotransferase 18 U/L (13-56); Albumin < 0.6 G/DL (3.4-5.0); Alkaline Phosphatase 145 U/L (45-117); Aspartate Amino Transferase 20 U/L (0-37); Bilirubin,Total < 0.39 MG/DL (0.2-1.0); Blood Urea Nitrogen 18 MG/DL (7-18); Calcium 6.9 MG/DL (8.5-10.1); Glucose 114 MG/DL (74-106); Osmolality,Calculated 296.3 MOS/KG (273-304); Potassium 5.3 MMOL/L (3.5-5.1); Sodium 148 MMOL/L (136-145); Total Protein 3.7 G/DL (6.4-8.3); Troponin I 0.029 NG/ML (0.00-0.045)
[2018-09-19] MEDS ORDERED: SODIUM CHLORIDE 0.9% 500 ML IV ONE ×2 (02:37→09:02)
[2018-09-19] MEDS ORDERED: NOREPINEPHRINE 4 MG/4 ML VIAL IV ONE (02:43)
[2018-09-19] MEDS: NOREPINEPHRINE 8 MG in SODIUM CHLORIDE 0.9% 242 ML IV PRN ×2 (02:47→22:05)
[2018-09-19] MEDS: CEFEPIME 1,000 MG in SYRINGE 1 EACH IV SCH ×2 (03:11→16:03)
[2018-09-19] MEDS: methylPREDNISolone SOD SUC 40 MG/1 ML VIAL IV SCH ×3 (03:11→22:04)
[2018-09-19] MEDS: CLINDAMYCIN 15 MG/ML 100 ML/BOTTLE PO SCH ×2 (03:11→11:40)
[2018-09-19] MEDS: PIPERACILLIN/TAZOBACTAM 3,375 MG in SODIUM CHLORIDE 0.9% 100 ML IV SCH (04:33)
[2018-09-19 04:41] LABS: Anisocytosis 1+; Band Neutrophils 3 % (0-10); Hypochromasia 1+; Lymphocytes 9 % (20-55); Platelet Estimate Adequate; Segmented Neutrophils 87 % (50-85); Total Cells Counted 100
[2018-09-19 04:43] LABS: ABG Base Excess 5.5 MMOL/L (-2.5-2.5); ABG HCO3 29.1 MMOL/L (20-26); ABG Oxygen Saturation 93.2 % (95-100); ABG PH 7.491 (7.35-7.45); ABG PO2 65.3 MM HG (80-95); ABG TCO2 30.3 MMOL/L (23-27); Allen Test Positive; Pt O2 Delivery Device Ventilator
[2018-09-19 05:47] LABS: Calcium 7.9 MG/DL (8.5-10.1); Osmolality,Calculated 290.8 MOS/KG (273-304); Potassium 3.6 MMOL/L (3.5-5.1)
[2018-09-19] MEDS: DORNASE ALFA 2.5 MG/2.5 ML VIAL RESP TX SCH ×2 (07:20→18:27)
[2018-09-19] MEDS: DEXTROSE 5% NACL 0.45% 1,000 ML IV SCH (09:42)
[2018-09-19] MEDS: MULTIVITAMIN (CENTRUM) TABLET PO SCH (11:36)
[2018-09-19] MEDS: LACOSAMIDE 50 MG TABLET PO SCH ×2 (11:38→22:04)
[2018-09-19] MEDS: ENOXAPARIN 30 MG/0.3 ML SYRINGE SUBCUT SCH (11:39)
[2018-09-19] MEDS: CLOPIDOGREL 75 MG TABLET PO SCH (11:39)
[2018-09-19] MEDS: ASPIRIN EC 81 MG TABLET PO SCH (11:39)
[2018-09-19] MEDS: MULTIVITAMIN LIQUID (CENTRUM) 60 ML BOTTLE PO SCH (11:39)
[2018-09-19] MEDS: ATORVASTATIN 40 MG TABLET PO SCH (11:39)
[2018-09-19] MEDS: PANTOPRAZOLE 40 MG VIAL IV SCH (11:40)
[2018-09-19] MEDS: SODIUM HYPOCHLORITE 0.25% IRRIG 473 ML BOTTLE TOP SCH ×2 (11:51→22:04)
[2018-09-19] MEDS: ZINC OXIDE PASTE 113 GM TUBE TOP SCH ×2 (11:51→22:04)
[2018-09-19 17:09] LABS: Basophils # 0.1 10*3/uL (0.0-0.2); Basophils % 0.4 % (0.0-0.8); Hematocrit 27.1 VOL% (35.7-47.0); Hemoglobin 8.5 GM/DL (12.0-16.0); Immature Granulocytes % 1.3 %; Lymphocytes # 1.9 10*3/uL (1.4-4.0); Mean Corpuscular HGB Conc 31.4 GM/DL (32-36); Mean Corpuscular Hemoglobin 26 PG (27-34); Mean Corpuscular Volume 83.4 FL (87-102); Mean Platelet Volume 11.6 FL (9.6-12.0); Monocytes # 0.6 10*3/uL (0.11-0.8); Monocytes % 1.9 % (1.7-12.7); NRBC # 0.03 10*3/uL; Neutrophils # 28.5 10*3/uL (1.4-7.4); Neutrophils % 90.4 % (38.7-73.9); Platelet Count 165 T/CUMM (130-400); Red Blood Count 3.25 MC/CUMM (3.8-5.5); Red Cell Distribution Width 18.7 % (9.3-17.3); White Blood Count 31.6 T/CUMM (4-12)
[2018-09-19 17:38] LABS: Lymphocytes 4 % (20-55); Platelet Estimate Normal; Segmented Neutrophils 96 % (50-85); Total Cells Counted 100
[2018-09-19 17:39] LABS: Hypochromasia 1+; Microcytosis Slight; Ovalocytes Few
[2018-09-19] MEDS: SODIUM CHLORIDE 0.9% 1,000 ML IV SCH (19:03)
[2018-09-19] MEDS: CLINDAMYCIN INJ 600 MG in PREMIX 1 EACH IV SCH (19:04)
[2018-09-19] MEDS: MIRTAZAPINE 15 MG TABLET PO SCH (22:04)
[2018-09-20] MEDS: ALBUTEROL/IPRATROPIUM 3 ML NEB RESP TX SCH ×4 (00:34→19:20)
[2018-09-20] MEDS: PROPOFOL 1,000 MG/100 ML BOTTLE IV SCH ×2 (01:35→20:34)
[2018-09-20] MEDS: CEFEPIME 1,000 MG in SYRINGE 1 EACH IV SCH ×2 (03:00→16:27)
[2018-09-20] MEDS: CLINDAMYCIN INJ 600 MG in PREMIX 1 EACH IV SCH ×3 (03:00→18:35)
[2018-09-20] MEDS: SODIUM CHLORIDE 0.9% 1,000 ML IV SCH ×4 (03:24→18:35)
[2018-09-20 04:50] LABS: ABG Base Excess 5.7 MMOL/L (-2.5-2.5); ABG HCO3 29.6 MMOL/L (20-26); ABG Oxygen Saturation 99.8 % (95-100); ABG PCO2 27.5 MM HG (35-48); ABG TCO2 25.7 MMOL/L (23-27); Allen Test Positive; Pt O2 Delivery Device Ventilator
[2018-09-20] MEDS: MORPHINE 4 MG/1 ML VIAL IV PRN ×2 (05:00→20:33)
[2018-09-20 05:14] LABS: ABG PH 7.604 (7.35-7.45)
[2018-09-20 05:55] LABS: Basophils % 0.1 % (0.0-0.8); Hematocrit 21.4 VOL% (35.7-47.0); Hemoglobin 6.8 GM/DL (12.0-16.0); Immature Granulocytes % 0.9 %; Immature Granulocytes Absolute 0.21 #; Lymphocytes # 1.6 10*3/uL (1.4-4.0); Lymphocytes % 6.6 % (21.3-54.2); Mean Corpuscular HGB Conc 31.8 GM/DL (32-36); Mean Corpuscular Hemoglobin 26 PG (27-34); Mean Corpuscular Volume 81.1 FL (87-102); Mean Platelet Volume 11.7 FL (9.6-12.0); Monocytes # 0.5 10*3/uL (0.11-0.8); Monocytes % 1.9 % (1.7-12.7); NRBC # 0.03 10*3/uL; Neutrophils # 21.6 10*3/uL (1.4-7.4); Neutrophils % 90.5 % (38.7-73.9); Platelet Count 185 T/CUMM (130-400); Red Blood Count 2.64 MC/CUMM (3.8-5.5); Red Cell Distribution Width 18.6 % (9.3-17.3); White Blood Count 23.9 T/CUMM (4-12)
[2018-09-20 06:23] LABS: Calcium 6.7 MG/DL (8.5-10.1); Osmolality,Calculated 294.6 MOS/KG (273-304); Potassium 3.1 MMOL/L (3.5-5.1)
[2018-09-20] MEDS: methylPREDNISolone SOD SUC 40 MG/1 ML VIAL IV SCH ×3 (06:34→20:33)
[2018-09-20 06:37] LABS: Band Neutrophils 2 % (0-10); Lymphocytes 9 % (20-55); Segmented Neutrophils 88 % (50-85); Total Cells Counted 100
[2018-09-20 06:38] LABS: Anisocytosis Slight; Macrocytosis Slight; Ovalocytes Few; Platelet Estimate Normal
[2018-09-20] MEDS: DORNASE ALFA 2.5 MG/2.5 ML VIAL RESP TX SCH ×2 (07:35→19:20)
[2018-09-20] MEDS: ENOXAPARIN 30 MG/0.3 ML SYRINGE SUBCUT SCH (09:50)
[2018-09-20] MEDS: SODIUM HYPOCHLORITE 0.25% IRRIG 473 ML BOTTLE TOP SCH ×2 (09:50→20:32)
[2018-09-20] MEDS: CLOPIDOGREL 75 MG TABLET PO SCH (09:50)
[2018-09-20] MEDS: PANTOPRAZOLE 40 MG VIAL IV SCH (09:50)
[2018-09-20] MEDS: LACOSAMIDE 50 MG TABLET PO SCH ×2 (09:50→20:33)
[2018-09-20] MEDS: ATORVASTATIN 40 MG TABLET PO SCH (09:50)
[2018-09-20] MEDS: ASPIRIN EC 81 MG TABLET PO SCH (09:51)
[2018-09-20] MEDS: MULTIVITAMIN LIQUID (CENTRUM) 60 ML BOTTLE PO SCH (09:51)
[2018-09-20] MEDS: MULTIVITAMIN (CENTRUM) TABLET PO SCH (09:51)
[2018-09-20] MEDS: ZINC OXIDE PASTE 113 GM TUBE TOP SCH ×2 (09:51→20:32)
[2018-09-20] MEDS ORDERED: MAGNESIUM SULF RIDER 1 GM in PREMIX 1 EACH IV ONE (13:18)
[2018-09-20] MEDS ORDERED: SODIUM CHLORIDE 0.9% 1,000 ML IV PRN ×2 (13:28→14:43)
[2018-09-20 14:00] LABS: Ferritin 930.8 ng/ml (8-252)
[2018-09-20] MEDS: POTASSIUM CHLORIDE RIDER 20 MEQ in PREMIX 1 EACH IV PRN ×2 (16:27→18:29)
[2018-09-20] MEDS: MIRTAZAPINE 15 MG TABLET PO SCH (20:32)
[2018-09-21] MEDS: ALBUTEROL/IPRATROPIUM 3 ML NEB RESP TX SCH ×4 (00:47→20:04)
[2018-09-21] MEDS: PROPOFOL 1,000 MG/100 ML BOTTLE IV SCH ×2 (02:04→18:21)
[2018-09-21] MEDS: CLINDAMYCIN INJ 600 MG in PREMIX 1 EACH IV SCH ×3 (02:05→18:09)
[2018-09-21] MEDS: CEFEPIME 1,000 MG in SYRINGE 1 EACH IV SCH ×2 (02:05→15:59)
[2018-09-21 03:31] LABS: ABG Base Excess 0.4 MMOL/L (-2.5-2.5); ABG HCO3 24.8 MMOL/L (20-26); ABG PCO2 32.8 MM HG (35-48); ABG PH 7.469 (7.35-7.45); ABG TCO2 22.3 MMOL/L (23-27); Allen Test Positive; Pt O2 Delivery Device Ventilator
[2018-09-21] MEDS: SODIUM CHLORIDE 0.9% 1,000 ML IV SCH ×2 (05:00→15:01)
[2018-09-21 05:08] LABS: Basophils % 0.1 % (0.0-0.8); Hematocrit 22.5 VOL% (35.7-47.0); Hemoglobin 7.1 GM/DL (12.0-16.0); Immature Granulocytes % 0.8 %; Immature Granulocytes Absolute 0.19 #; Lymphocytes # 1.2 10*3/uL (1.4-4.0); Lymphocytes % 5.2 % (21.3-54.2); Mean Corpuscular HGB Conc 31.6 GM/DL (32-36); Mean Corpuscular Hemoglobin 26 PG (27-34); Mean Platelet Volume 11.6 FL (9.6-12.0); Monocytes # 0.4 10*3/uL (0.11-0.8); Monocytes % 1.5 % (1.7-12.7); NRBC # 0.02 10*3/uL; Neutrophils # 21.7 10*3/uL (1.4-7.4); Neutrophils % 92.4 % (38.7-73.9); Red Blood Count 2.71 MC/CUMM (3.8-5.5); Red Cell Distribution Width 17.7 % (9.3-17.3); White Blood Count 23.4 T/CUMM (4-12)
[2018-09-21 05:10] LABS: Platelet Count 119 T/CUMM (130-400)
[2018-09-21 05:12] LABS: Calcium 6.4 MG/DL (8.5-10.1); Osmolality,Calculated 299.3 MOS/KG (273-304); Potassium 3.7 MMOL/L (3.5-5.1)
[2018-09-21 05:29] LABS: Atypical Lymphocytes Few; Lymphocytes 4 % (20-55); Platelet Estimate Adequate; Segmented Neutrophils 96 % (50-85); Total Cells Counted 100
[2018-09-21] MEDS: methylPREDNISolone SOD SUC 40 MG/1 ML VIAL IV SCH ×3 (05:46→20:09)
[2018-09-21] MEDS ORDERED: VANCOMYCIN INJ 750 MG in SODIUM CHLORIDE 0.9% 250 ML IV PRN (07:34)
[2018-09-21] MEDS ORDERED: CALCIUM GLUCONATE 1,000 MG in SODIUM CHLORIDE 0.9% 100 ML IV ONE (08:00)
[2018-09-21] MEDS: SODIUM HYPOCHLORITE 0.25% IRRIG 473 ML BOTTLE TOP SCH ×2 (08:13→20:09)
[2018-09-21] MEDS: ATORVASTATIN 40 MG TABLET PO SCH (08:13)
[2018-09-21] MEDS: LACOSAMIDE 50 MG TABLET PO SCH ×2 (08:13→20:09)
[2018-09-21] MEDS: CLOPIDOGREL 75 MG TABLET PO SCH (08:13)
[2018-09-21] MEDS: ASPIRIN EC 81 MG TABLET PO SCH (08:13)
[2018-09-21] MEDS: ZINC OXIDE PASTE 113 GM TUBE TOP SCH ×2 (08:13→20:09)
[2018-09-21] MEDS: MULTIVITAMIN (CENTRUM) TABLET PO SCH (08:14)
[2018-09-21] MEDS: PANTOPRAZOLE 40 MG VIAL IV SCH (08:14)
[2018-09-21] MEDS: MULTIVITAMIN LIQUID (CENTRUM) 60 ML BOTTLE PO SCH (08:14)
[2018-09-21] MEDS: DORNASE ALFA 2.5 MG/2.5 ML VIAL RESP TX SCH ×2 (08:18→20:04)
[2018-09-21] MEDS: ENOXAPARIN 30 MG/0.3 ML SYRINGE SUBCUT SCH (09:01)
[2018-09-21] MEDS: POTASSIUM CHLORIDE RIDER 20 MEQ in PREMIX 1 EACH IV PRN (09:57)
[2018-09-21] MEDS ORDERED: VANCOMYCIN INJ 750 MG in SODIUM CHLORIDE 0.9% 250 ML IV ONE (12:00)
[2018-09-21 14:47] LABS: Hematocrit 33.7 VOL% (35.7-47.0)
[2018-09-21 14:48] LABS: Hemoglobin 11.1 GM/DL (12.0-16.0)
[2018-09-21] MEDS: DEXTROSE 50% 25 GM/50 ML SYRINGE IV PRN (18:33)
[2018-09-21] MEDS: MIRTAZAPINE 15 MG TABLET PO SCH (20:09)
[2018-09-22] MEDS: ALBUTEROL/IPRATROPIUM 3 ML NEB RESP TX SCH ×4 (00:50→20:06)
[2018-09-22] MEDS: SODIUM CHLORIDE 0.9% 1,000 ML IV SCH (01:38)
[2018-09-22] MEDS: PROPOFOL 1,000 MG/100 ML BOTTLE IV SCH ×2 (01:39→11:51)
[2018-09-22 03:14] LABS: ABG Base Excess -3.7 MMOL/L (-2.5-2.5); ABG HCO3 21.3 MMOL/L (20-26); ABG Oxygen Saturation 95.1 % (95-100); ABG PCO2 32.9 MM HG (35-48); ABG PH 7.398 (7.35-7.45); ABG PO2 77.1 MM HG (80-95); Allen Test Positive; Pt O2 Delivery Device Ventilator
[2018-09-22] MEDS: CEFEPIME 1,000 MG in SYRINGE 1 EACH IV SCH ×2 (03:44→14:00)
[2018-09-22] MEDS: CLINDAMYCIN INJ 600 MG in PREMIX 1 EACH IV SCH ×3 (03:44→17:15)
[2018-09-22 04:38] LABS: Calcium 6.8 MG/DL (8.5-10.1); Osmolality,Calculated 303.9 MOS/KG (273-304); Potassium 3.6 MMOL/L (3.5-5.1)
[2018-09-22] MEDS: methylPREDNISolone SOD SUC 40 MG/1 ML VIAL IV SCH ×3 (04:50→21:05)
[2018-09-22] MEDS: DEXTROSE 5% NACL 0.45% 1,000 ML IV SCH ×2 (08:00→17:45)
[2018-09-22] MEDS: ASPIRIN EC 81 MG TABLET PO SCH (08:03)
[2018-09-22] MEDS: MULTIVITAMIN (CENTRUM) TABLET PO SCH (08:03)
[2018-09-22] MEDS: DORNASE ALFA 2.5 MG/2.5 ML VIAL RESP TX SCH ×2 (08:23→20:06)
[2018-09-22] MEDS: POTASSIUM CHLORIDE RIDER 20 MEQ in PREMIX 1 EACH IV PRN (08:30)
[2018-09-22] MEDS: CALCIUM GLUCONATE 2,000 MG in SODIUM CHLORIDE 0.9% 100 ML IV PRN (08:30)
[2018-09-22] MEDS: LACOSAMIDE 50 MG TABLET PO SCH ×2 (08:36→21:05)
[2018-09-22] MEDS: PANTOPRAZOLE 40 MG VIAL IV SCH (08:36)
[2018-09-22] MEDS: SODIUM HYPOCHLORITE 0.25% IRRIG 473 ML BOTTLE TOP SCH ×2 (08:36→21:04)
[2018-09-22] MEDS: ATORVASTATIN 40 MG TABLET PO SCH (08:36)
[2018-09-22] MEDS: MULTIVITAMIN LIQUID (CENTRUM) 60 ML BOTTLE PO SCH (08:36)
[2018-09-22] MEDS: ZINC OXIDE PASTE 113 GM TUBE TOP SCH ×2 (08:36→21:05)
[2018-09-22] MEDS: CLOPIDOGREL 75 MG TABLET PO SCH (08:36)
[2018-09-22 10:07] LABS: Hematocrit 34.8 VOL% (35.7-47.0); Hemoglobin 11.2 GM/DL (12.0-16.0)
[2018-09-22] MEDS: ENOXAPARIN 30 MG/0.3 ML SYRINGE SUBCUT SCH (10:17)
[2018-09-22] MEDS ORDERED: cloNIDine 0.2 MG/24 HR PATCH TRANSDERM SCH (13:30)
[2018-09-22] MEDS: CARVEDILOL 12.5 MG TABLET NG SCH ×2 (14:01→21:04)
[2018-09-22] MEDS: MIRTAZAPINE 15 MG TABLET PO SCH (21:05)
[2018-09-23] MEDS: ALBUTEROL/IPRATROPIUM 3 ML NEB RESP TX SCH ×4 (00:59→20:02)
[2018-09-23 04:01] LABS: ABG Base Excess -5.9 MMOL/L (-2.5-2.5); ABG HCO3 19.6 MMOL/L (20-26); ABG Oxygen Saturation 98.1 % (95-100); ABG PCO2 32.6 MM HG (35-48); ABG PH 7.365 (7.35-7.45); ABG TCO2 16.5 MMOL/L (23-27); Allen Test Positive; Pt O2 Delivery Device Ventilator
[2018-09-23 04:04] LABS: Calcium 7.1 MG/DL (8.5-10.1)
[2018-09-23 04:05] LABS: Osmolality,Calculated 298.7 MOS/KG (273-304); Potassium 4.1 MMOL/L (3.5-5.1)
[2018-09-23] MEDS: PROPOFOL 1,000 MG/100 ML BOTTLE IV SCH (04:19)
[2018-09-23] MEDS: CLINDAMYCIN INJ 600 MG in PREMIX 1 EACH IV SCH ×3 (04:20→18:08)
[2018-09-23] MEDS: methylPREDNISolone SOD SUC 40 MG/1 ML VIAL IV SCH ×3 (04:21→21:03)
[2018-09-23] MEDS: CEFEPIME 1,000 MG in SYRINGE 1 EACH IV SCH ×2 (04:21→14:31)
[2018-09-23] MEDS: DEXTROSE 5% NACL 0.45% 1,000 ML IV SCH ×2 (04:21→18:08)
[2018-09-23] MEDS: DORNASE ALFA 2.5 MG/2.5 ML VIAL RESP TX SCH ×2 (07:35→20:02)
[2018-09-23] MEDS: PANTOPRAZOLE 40 MG VIAL IV SCH (09:35)
[2018-09-23] MEDS: ASPIRIN EC 81 MG TABLET PO SCH (09:35)
[2018-09-23] MEDS: SODIUM HYPOCHLORITE 0.25% IRRIG 473 ML BOTTLE TOP SCH ×2 (09:36→21:04)
[2018-09-23] MEDS: ATORVASTATIN 40 MG TABLET PO SCH (09:36)
[2018-09-23] MEDS: CLOPIDOGREL 75 MG TABLET PO SCH (09:36)
[2018-09-23] MEDS: LACOSAMIDE 50 MG TABLET PO SCH ×2 (09:36→21:03)
[2018-09-23] MEDS: CARVEDILOL 12.5 MG TABLET NG SCH ×2 (09:36→21:03)
[2018-09-23] MEDS: MULTIVITAMIN LIQUID (CENTRUM) 60 ML BOTTLE PO SCH (09:36)
[2018-09-23] MEDS: ZINC OXIDE PASTE 113 GM TUBE TOP SCH ×2 (09:36→21:04)
[2018-09-23] MEDS ORDERED: FUROSEMIDE 40 MG/4 ML VIAL IV ONE (10:05)
[2018-09-23] MEDS ORDERED: ALTEPLASE 2 MG VIAL INTRACATH ONE (11:00)
[2018-09-23] MEDS: INSULIN REGULAR 100 UNIT/ML SUBCUT SCH (18:07)
[2018-09-23] MEDS: MIRTAZAPINE 15 MG TABLET PO SCH (21:03)
[2018-09-24] MEDS: INSULIN REGULAR 100 UNIT/ML SUBCUT SCH ×4 (00:10→18:52)
[2018-09-24] MEDS: ALBUTEROL/IPRATROPIUM 3 ML NEB RESP TX SCH ×4 (00:41→20:00)
[2018-09-24] MEDS: CLINDAMYCIN INJ 600 MG in PREMIX 1 EACH IV SCH ×2 (01:48→10:54)
[2018-09-24] MEDS: PROPOFOL 1,000 MG/100 ML BOTTLE IV SCH ×2 (01:48→21:44)
[2018-09-24] MEDS: CEFEPIME 1,000 MG in SYRINGE 1 EACH IV SCH ×2 (02:55→14:55)
[2018-09-24 04:07] LABS: Allen Test Positive; Pt O2 Delivery Device Ventilator
[2018-09-24] MEDS: DEXTROSE 5% NACL 0.45% 1,000 ML IV SCH ×3 (04:08→14:30)
[2018-09-24 04:23] LABS: ABG Base Excess -8.3 MMOL/L (-2.5-2.5); ABG HCO3 17.8 MMOL/L (20-26); ABG Oxygen Saturation 98.6 % (95-100); ABG PCO2 26.8 MM HG (35-48); ABG PH 7.373 (7.35-7.45); ABG TCO2 13.9 MMOL/L (23-27)
[2018-09-24 05:22] LABS: Basophils % 0.2 % (0.0-0.8); Hematocrit 35.3 VOL% (35.7-47.0); Hemoglobin 11.2 GM/DL (12.0-16.0); Immature Granulocytes % 1.2 %; Immature Granulocytes Absolute 0.24 #; Mean Corpuscular HGB Conc 31.7 GM/DL (32-36); Mean Corpuscular Hemoglobin 28 PG (27-34); Mean Corpuscular Volume 87.6 FL (87-102); Mean Platelet Volume 11.3 FL (9.6-12.0); Monocytes # 0.2 10*3/uL (0.11-0.8); Monocytes % 1.1 % (1.7-12.7); NRBC # 0.07 10*3/uL; Neutrophils # 18.2 10*3/uL (1.4-7.4); Neutrophils % 92.5 % (38.7-73.9); Red Blood Count 4.03 MC/CUMM (3.8-5.5); Red Cell Distribution Width 17.2 % (9.3-17.3); White Blood Count 19.7 T/CUMM (4-12)
[2018-09-24 05:30] LABS: Platelet Count 55 T/CUMM (130-400)
[2018-09-24 05:33] LABS: Alanine Aminotransferase 39 U/L (13-56); Albumin 0.7 G/DL (3.4-5.0); Alkaline Phosphatase 145 U/L (45-117); Aspartate Amino Transferase 22 U/L (0-37); Bilirubin,Total < 0.39 MG/DL (0.2-1.0); Blood Urea Nitrogen 34 MG/DL (7-18); Calcium 6.9 MG/DL (8.5-10.1); Glucose 249 MG/DL (74-106); Osmolality,Calculated 298.1 MOS/KG (273-304); Potassium 4.1 MMOL/L (3.5-5.1); Sodium 142 MMOL/L (136-145); Total Protein 3.9 G/DL (6.4-8.3)
[2018-09-24 05:35] LABS: Prealbumin 9.7 MG/DL (20-40)
[2018-09-24] MEDS: methylPREDNISolone SOD SUC 40 MG/1 ML VIAL IV SCH ×3 (05:45→21:02)
[2018-09-24 05:48] LABS: Acanthocytes Few; Band Neutrophils 1 % (0-10); Hypochromasia 1+; Lymphocytes 7 % (20-55); Microcytosis 1+; Nucleated Red Blood Cells 1 (0-5); Segmented Neutrophils 91 % (50-85); Total Cells Counted 100
[2018-09-24 05:49] LABS: Platelet Estimate Decreased
[2018-09-24] MEDS: CALCIUM GLUCONATE 2,000 MG in SODIUM CHLORIDE 0.9% 100 ML IV PRN (06:19)
[2018-09-24] MEDS: DORNASE ALFA 2.5 MG/2.5 ML VIAL RESP TX SCH ×2 (07:41→20:00)
[2018-09-24] MEDS: CARVEDILOL 12.5 MG TABLET NG SCH ×2 (09:16→21:02)
[2018-09-24] MEDS: ATORVASTATIN 40 MG TABLET PO SCH (09:16)
[2018-09-24] MEDS: ASPIRIN EC 81 MG TABLET PO SCH (09:16)
[2018-09-24] MEDS: CLOPIDOGREL 75 MG TABLET PO SCH (09:16)
[2018-09-24] MEDS: LACOSAMIDE 50 MG TABLET PO SCH ×2 (09:16→21:01)
[2018-09-24] MEDS: SODIUM HYPOCHLORITE 0.25% IRRIG 473 ML BOTTLE TOP SCH ×2 (09:17→21:03)
[2018-09-24] MEDS: ZINC OXIDE PASTE 113 GM TUBE TOP SCH ×2 (09:17→21:03)
[2018-09-24] MEDS: PANTOPRAZOLE 40 MG VIAL IV SCH (09:17)
[2018-09-24] MEDS: MULTIVITAMIN LIQUID (CENTRUM) 60 ML BOTTLE PO SCH (11:16)
[2018-09-24] MEDS ORDERED: MAGNESIUM SULF RIDER 4 GM in PREMIX 1 EACH IV ONE (13:50)
[2018-09-24] MEDS ORDERED: FUROSEMIDE 20 MG/2 ML VIAL IV ONE (14:30)
[2018-09-24] MEDS ORDERED: ALBUMIN 25% 25 GM in PREMIX 1 EACH IV ONE (14:30)
[2018-09-24] MEDS: MIRTAZAPINE 15 MG TABLET PO SCH (21:02)
[2018-09-25] MEDS: INSULIN REGULAR 100 UNIT/ML SUBCUT SCH ×4 (00:07→18:03)
[2018-09-25] MEDS: DEXTROSE 5% NACL 0.45% 1,000 ML IV SCH ×2 (00:28→05:57)
[2018-09-25] MEDS: ALBUTEROL/IPRATROPIUM 3 ML NEB RESP TX SCH ×4 (00:50→19:53)
[2018-09-25] MEDS: PROPOFOL 1,000 MG/100 ML BOTTLE IV SCH ×2 (01:27→21:00)
[2018-09-25] MEDS: CEFEPIME 1,000 MG in SYRINGE 1 EACH IV SCH ×2 (01:27→14:51)
[2018-09-25 04:27] LABS: ABG HCO3 15.7 MMOL/L (20-26); ABG Oxygen Saturation 94.2 % (95-100); ABG PCO2 28.6 MM HG (35-48); ABG PH 7.305 (7.35-7.45); ABG PO2 74.5 MM HG (80-95); Allen Test Positive; Pt O2 Delivery Device Ventilator
[2018-09-25] MEDS: methylPREDNISolone SOD SUC 40 MG/1 ML VIAL IV SCH ×3 (04:39→20:59)
[2018-09-25 05:05] LABS: Basophils % 0.1 % (0.0-0.8); Hematocrit 33.1 VOL% (35.7-47.0); Hemoglobin 10.3 GM/DL (12.0-16.0); Immature Granulocytes % 1.1 %; Immature Granulocytes Absolute 0.19 #; Lymphocytes % 5.6 % (21.3-54.2); Mean Corpuscular HGB Conc 31.1 GM/DL (32-36); Mean Corpuscular Hemoglobin 28 PG (27-34); Monocytes # 0.3 10*3/uL (0.11-0.8); Monocytes % 1.5 % (1.7-12.7); NRBC # 0.07 10*3/uL; Neutrophils # 15.5 10*3/uL (1.4-7.4); Neutrophils % 91.7 % (38.7-73.9); Red Blood Count 3.72 MC/CUMM (3.8-5.5); Red Cell Distribution Width 17.3 % (9.3-17.3); White Blood Count 16.9 T/CUMM (4-12)
[2018-09-25 05:09] LABS: Platelet Count 22 T/CUMM (130-400)
[2018-09-25 05:20] LABS: Alanine Aminotransferase 33 U/L (13-56); Albumin 1.2 G/DL (3.4-5.0); Alkaline Phosphatase 152 U/L (45-117); Aspartate Amino Transferase 24 U/L (0-37); Bilirubin,Total < 0.39 MG/DL (0.2-1.0); Blood Urea Nitrogen 41 MG/DL (7-18); Calcium 7.4 MG/DL (8.5-10.1); Glucose 241 MG/DL (74-106); Osmolality,Calculated 292.7 MOS/KG (273-304); Sodium 138 MMOL/L (136-145); Total Protein 4.2 G/DL (6.4-8.3)
[2018-09-25 05:38] LABS: Burr Cells Slight; Hypochromasia 1+; Lymphocytes 5 % (20-55); Ovalocytes Slight; Platelet Estimate Decreased; Segmented Neutrophils 95 % (50-85); Total Cells Counted 100
[2018-09-25 05:39] LABS: Microcytosis 1+
[2018-09-25] MEDS: DORNASE ALFA 2.5 MG/2.5 ML VIAL RESP TX SCH ×2 (07:54→19:53)
[2018-09-25] MEDS: LACOSAMIDE 50 MG TABLET PO SCH ×2 (08:11→20:58)
[2018-09-25] MEDS: CARVEDILOL 12.5 MG TABLET NG SCH ×2 (08:11→20:58)
[2018-09-25] MEDS: PANTOPRAZOLE 40 MG VIAL IV SCH (08:11)
[2018-09-25] MEDS: CLOPIDOGREL 75 MG TABLET PO SCH (08:11)
[2018-09-25] MEDS: ATORVASTATIN 40 MG TABLET PO SCH (08:11)
[2018-09-25] MEDS: SODIUM HYPOCHLORITE 0.25% IRRIG 473 ML BOTTLE TOP SCH ×2 (08:12→20:59)
[2018-09-25] MEDS: MULTIVITAMIN LIQUID (CENTRUM) 60 ML BOTTLE PO SCH (08:12)
[2018-09-25] MEDS: ZINC OXIDE PASTE 113 GM TUBE TOP SCH ×2 (08:12→20:59)
[2018-09-25] MEDS ORDERED: ETOMIDATE 40 MG/20 ML VIAL IV ONE (10:28)
[2018-09-25] MEDS ORDERED: ROCURONIUM 100 MG/10 ML VIAL IV ONE (10:29)
[2018-09-25] MEDS: ASPIRIN EC 81 MG TABLET PO SCH (11:10)
[2018-09-25] MEDS ORDERED: VANCOMYCIN INJ 750 MG in SODIUM CHLORIDE 0.9% 250 ML IV ONE (11:30)
[2018-09-25] MEDS: MIRTAZAPINE 15 MG TABLET PO SCH (20:58)
[2018-09-26] MEDS: ALBUTEROL/IPRATROPIUM 3 ML NEB RESP TX SCH ×3 (00:30→13:24)
[2018-09-26] MEDS: INSULIN REGULAR 100 UNIT/ML SUBCUT SCH ×4 (01:18→17:38)
[2018-09-26] MEDS: PROPOFOL 1,000 MG/100 ML BOTTLE IV SCH ×2 (01:56→12:26)
[2018-09-26] MEDS: CEFEPIME 1,000 MG in SYRINGE 1 EACH IV SCH (01:57)
[2018-09-26 03:16] LABS: ABG Base Excess -11.8 MMOL/L (-2.5-2.5); ABG HCO3 15.2 MMOL/L (20-26); ABG Oxygen Saturation 94.2 % (95-100); ABG PCO2 27.2 MM HG (35-48); ABG PH 7.302 (7.35-7.45); ABG PO2 73.1 MM HG (80-95); ABG TCO2 12.3 MMOL/L (23-27); Allen Test Positive; Pt O2 Delivery Device Ventilator
[2018-09-26 05:49] LABS: Basophils % 0.1 % (0.0-0.8); Eosinophils # 0.1 10*3/uL (0.0-0.87); Eosinophils % 0.6 % (0.00-10.9); Hematocrit 32.3 VOL% (35.7-47.0); Hemoglobin 10.2 GM/DL (12.0-16.0); Immature Granulocytes % 1.2 %; Immature Granulocytes Absolute 0.19 #; Lymphocytes # 1.2 10*3/uL (1.4-4.0); Lymphocytes % 7.8 % (21.3-54.2); Mean Corpuscular HGB Conc 31.6 GM/DL (32-36); Mean Corpuscular Hemoglobin 28 PG (27-34); Monocytes # 0.2 10*3/uL (0.11-0.8); Monocytes % 1.3 % (1.7-12.7); NRBC # 0.04 10*3/uL; Neutrophils # 13.9 10*3/uL (1.4-7.4); Red Blood Count 3.67 MC/CUMM (3.8-5.5); Red Cell Distribution Width 17.1 % (9.3-17.3); White Blood Count 15.6 T/CUMM (4-12)
[2018-09-26 05:52] LABS: Platelet Count 13 T/CUMM (130-400)
[2018-09-26 06:09] LABS: Alanine Aminotransferase 35 U/L (13-56); Alkaline Phosphatase 162 U/L (45-117); Aspartate Amino Transferase 56 U/L (0-37); Bilirubin,Total < 0.39 MG/DL (0.2-1.0); Blood Urea Nitrogen 49 MG/DL (7-18); Calcium 7.4 MG/DL (8.5-10.1); Glucose 115 MG/DL (74-106); Osmolality,Calculated 286.8 MOS/KG (273-304); Potassium 4.2 MMOL/L (3.5-5.1); Sodium 137 MMOL/L (136-145); Total Protein 4.1 G/DL (6.4-8.3)
[2018-09-26 06:10] LABS: Burr Cells Slight; Eosinophils 1 % (0-10); Hypochromasia 1+; Lymphocytes 8 % (20-55); Ovalocytes Slight; Platelet Estimate Decreased; Segmented Neutrophils 88 % (50-85); Total Cells Counted 100
[2018-09-26 06:11] LABS: Microcytosis 1+
[2018-09-26] MEDS: methylPREDNISolone SOD SUC 40 MG/1 ML VIAL IV SCH ×2 (06:22→12:15)
[2018-09-26] MEDS: DORNASE ALFA 2.5 MG/2.5 ML VIAL RESP TX SCH (07:32)
[2018-09-26] MEDS ORDERED: SODIUM CHLORIDE 0.9% 1,000 ML IV PRN (07:39)
[2018-09-26 08:05] LABS: INR 1.4; PT Patient Result 14.9 SECS
[2018-09-26] MEDS: ATORVASTATIN 40 MG TABLET PO SCH (08:12)
[2018-09-26] MEDS: ZINC OXIDE PASTE 113 GM TUBE TOP SCH (08:13)
[2018-09-26] MEDS: SODIUM HYPOCHLORITE 0.25% IRRIG 473 ML BOTTLE TOP SCH (08:13)
[2018-09-26] MEDS: MULTIVITAMIN LIQUID (CENTRUM) 60 ML BOTTLE PO SCH (08:14)
[2018-09-26] MEDS: LACOSAMIDE 50 MG TABLET PO SCH (08:20)
[2018-09-26] MEDS: CARVEDILOL 12.5 MG TABLET NG SCH (08:47)
[2018-09-26] MEDS ORDERED: FAMOTIDINE 20 MG/2 ML VIAL IV SCH (09:00)
[2018-09-26 11:35] VITALS: BP 93/69
[2018-09-26] MEDS ORDERED: FLUCONAZOLE INJ 200 MG in PREMIX 1 EACH IV SCH (14:00)
[2018-09-26] MEDS ORDERED: CEFEPIME 1,000 MG in SYRINGE 1 EACH IV SCH (14:00)
[2018-09-26] MEDS ORDERED: ALBUMIN 25% 12.5 GM in PREMIX 1 EACH IV SCH (15:00)
== END 2018-09-26 16:00 | disposition expired | DRG 720 ==
LOC: EDUNIT# → EDBD → N.ED 07:27 → N.EDINP 10:37 → SUATTDRO 10:37 → N.ICU 11:05 → N.3E 09-10 17:36 → N.CC 09-18 08:30
PROVIDERS: ADMIT Family Medicine; ATTEND Internal Medicine
PROC: EGDWPEG (ICD-10-PCS; 2018-09-16 09:35)